=== PATIENT | male | born 2000 | race Caucasian/White ===

== ENCOUNTER 2022-08-11 22:01 | Emergency (ER) | payer MEDICAID ==
[~2022-08-11] VITALS: Ht 172.7 cm; Wt 81.6 kg
--- NOTE | 2022-08-11 23:08 | NUR ---
DAVID. R ANKLE PAIN S/P INVERTION LAST SATURDAY
--- NOTE | 2022-08-11 23:09 | NUR ---
DR. TRUJILLO AT BEDSIDE
[2022-08-11] MEDS ORDERED: ACETAMINOPHEN ES 500 MG TABLET ONE (23:15)
--- NOTE | 2022-08-11 23:18 | NUR ---
X-RAY AT BEDSIDE
[2022-08-11] MEDS ORDERED: ACETAMINOPHEN ES 500 MG TABLET PO ONE (23:30)
[2022-08-11] MEDS ORDERED: IBUPROFEN 600 MG TABLET PO ONE (23:30)
[2022-08-12 00:40] VITALS: BP 133/67; TEMP 98.2
--- NOTE | 2022-08-12 00:40 | NUR ---
Patient discharged to home in stable condition. Written and verbal after care instructions given. Patient verbalizes understanding of instruction.
== END 2022-08-12 00:40 | disposition home or self-care (01) ==
LOC: ER 22:13
DX: S93.401A Sprain of unspecified ligament of right ankle, initial encounter (principal); W18.30XA Fall on same level, unspecified, initial encounter; Y93.89 Activity, other specified; Y92.89 Other specified places as the place of occurrence of the external cause; Y99.8 Other external cause status
CPT/HCPCS: 73610-TC

== ENCOUNTER 2023-01-31 09:11 | Emergency (ER) | payer MEDICAID ==
[~2023-01-31] VITALS: Ht 172.7 cm; Wt 80.3 kg
[2023-01-31 09:21] VITALS: BP 142/65; TEMP 98; O2SAT 99
[2023-01-31] MEDS: LIDOCAINE 5% (PATCH) 1 EA PATCH TP STA (10:13)
[2023-01-31] MEDS ORDERED: ACET-2605 PO (10:20)
[2023-01-31] MEDS ORDERED: LIDO30AD10 TP (10:20)
[2023-01-31] MEDS ORDERED: PRED50TA PO (10:20)
[2023-01-31] MEDS: ACETAMINOPHEN ES 500 MG TABLET PO ONE (10:30)
[2023-01-31] MEDS: predniSONE 50 MG TABLET PO ONE (10:30)
[2023-01-31] MEDS ORDERED: predniSONE 20 MG TABLET ONE ×2 (10:37→10:38)
[2023-01-31] MEDS ORDERED: ACETAMINOPHEN ES 500 MG TABLET ONE (10:37)
[2023-01-31] MEDS ORDERED: LIDOCAINE 5% (PATCH) 1 EA PATCH TP ONE (10:37)
== END 2023-01-31 10:41 | disposition home or self-care (01) ==
LOC: ER 09:11
DX: M54.50 Low back pain, unspecified (principal); F17.200 Nicotine dependence, unspecified, uncomplicated
CPT/HCPCS: 99284; J7512 ×2

== ENCOUNTER 2023-11-10 00:53 | Emergency (ER) | payer MEDICAID ==
[~2023-11-10] VITALS: Ht 172.7 cm; Wt 83.9 kg
[~2023-11-10 00:53] MED LIST: ACET-2605 PO; LIDO30AD10 TP; PRED50TA PO
[2023-11-10 01:39] LABS: BASOPHILS % (AUTO) 0.2 % (0.0-2.0); EOSINOPHILS % (AUTO) 0.1 % (0.0-6.0); HEMATOCRIT 45 % (39-51); LYMPHOCYTES # (AUTO) 0.7 K/uL (0.8-4.8); LYMPHOCYTES % (AUTO) 5.5 % (20.0-44.0); MEAN CORPUSCULAR HEMOGLOBIN 30 PG (26.0-33.0); MEAN CORPUSCULAR HGB CONC 34 g/dl (31.0-36.0); MEAN CORPUSCULAR VOLUME 88 fL (80-96); MONOCYTES # (AUTO) 0.8 K/uL (0.1-1.30); MONOCYTES % (AUTO) 5.8 % (2.0-12.0); NEUTROPHILS # (AUTO) 11.9 K/uL (1.8-8.9); NEUTROPHILS % (AUTO) 88.4 % (43.0-81.0); PLATELET COUNT (AUTO) 223 K/uL (150-450); RED BLOOD CELL COUNT(AUTO) 5.07 MIL/uL (4.5-6.0); RED CELL DISTRIBUTION WIDTH 13.2 % (11.5-15.0); WHITE BLOOD COUNT (AUTO) 13.5 K/uL (4.3-11.0)
[2023-11-10] MEDS ORDERED: FAMOTIDINE/PF INJ 20 MG/2 ML VIAL IV ONE (01:39)
[2023-11-10] MEDS ORDERED: ONDANSETRON HCL/PF 4 MG/2 ML VIAL ONE (01:39)
[2023-11-10] MEDS: FAMOTIDINE/PF INJ 20 MG/2 ML VIAL IV ONE (01:42)
[2023-11-10] MEDS: ONDANSETRON HCL/PF 4 MG/2 ML VIAL IVP ONE (01:42)
[2023-11-10 01:47] LABS: CREATININE 1.1 mg/dL (0.6-1.3); POTASSIUM 3.8 mmol/L (3.5-5.1)
[2023-11-10] MEDS: IV NS 0.9% 1,000 ML BAG IV ONE (01:50)
[2023-11-10 01:51] LABS: INR 1.02 (0.91-1.10); PARTIAL THROMBOPLASTIN TIME 24.6 SEC (24.3-34.3); PROTHROMBIN TIME 10.8 SECS (9.2-11.1)
[2023-11-10 01:55] LABS: ALBUMIN 4.5 g/dL (3.4-5.0); BILIRUBIN,DIRECT 0.1 mg/dL (0.0-0.2); BILIRUBIN,TOTAL 0.4 mg/dL (0.2-1.0)
[2023-11-10] MEDS ORDERED: IV NS 0.9% 250 ML IV ONE (01:57)
[2023-11-10] MEDS ORDERED: IOHEXOL-350 100 ML VIAL IV ONE (01:57)
[2023-11-10] MEDS ORDERED: CT SWABBABLE VALVE TRANS SET 1 EA INFUS.SET MC ONE (01:57)
[2023-11-10 04:54] VITALS: BP 131/78; TEMP 97.9; O2SAT 99
== END 2023-11-10 04:56 | disposition home or self-care (01) ==
LOC: ER 01:04
DX: K92.0 Hematemesis (principal); R10.10 Upper abdominal pain, unspecified; F17.200 Nicotine dependence, unspecified, uncomplicated; R10.9 Unspecified abdominal pain; F12.10 Cannabis abuse, uncomplicated; Z79.52 Long term (current) use of systemic steroids
CPT/HCPCS: 99285; 96374; 96361; 96375; 71045; 74174; 85025; 80048; 83690; 80076; 36415; 85730; 80320; J3490; J2405; J7030; J7050; Q9967; G0480

== ENCOUNTER 2024-03-13 21:02 | Emergency (ER) | payer MEDICAID, OTHER ==
[~2024-03-13] VITALS: Ht 172.7 cm; Wt 81.6 kg
[2024-03-13] MEDS ORDERED: ONDANSETRON HCL/PF 4 MG/2 ML VIAL ONE (21:27)
[2024-03-13] MEDS: ONDANSETRON HCL/PF 4 MG/2 ML VIAL IVP ONE (21:30)
[2024-03-13] MEDS: IV NS 0.9% 1,000 ML BAG IV ONE (21:39)
[2024-03-13 21:52] LABS: BASOPHILS % (AUTO) 0.5 % (0.0-2.0); EOSINOPHILS # (AUTO) 0.2 K/uL (0.0-0.7); EOSINOPHILS % (AUTO) 2.2 % (0.0-6.0); HEMATOCRIT 42 % (39-51); HEMOGLOBIN 14.5 g/dL (13.5-17.5); LYMPHOCYTES # (AUTO) 1.9 K/uL (0.8-4.8); LYMPHOCYTES % (AUTO) 26.4 % (20.0-44.0); MEAN CORPUSCULAR HEMOGLOBIN 31 PG (26.0-33.0); MEAN CORPUSCULAR HGB CONC 34 g/dl (31.0-36.0); MEAN CORPUSCULAR VOLUME 91 fL (80-96); MONOCYTES # (AUTO) 0.5 K/uL (0.1-1.30); MONOCYTES % (AUTO) 6.9 % (2.0-12.0); NEUTROPHILS # (AUTO) 4.7 K/uL (1.8-8.9); PLATELET COUNT (AUTO) 231 K/uL (150-450); RED BLOOD CELL COUNT(AUTO) 4.65 MIL/uL (4.5-6.0); RED CELL DISTRIBUTION WIDTH 13.2 % (11.5-15.0); WHITE BLOOD COUNT (AUTO) 7.4 K/uL (4.3-11.0)
[2024-03-13 22:12] LABS: CALCIUM, SERUM 8.5 mg/dL (8.5-10.1); CREATININE 1.1 mg/dL (0.6-1.3); POTASSIUM 3.8 mmol/L (3.5-5.1)
[2024-03-13 22:19] LABS: ALBUMIN 4.8 g/dL (3.4-5.0); BILIRUBIN,DIRECT 0.1 mg/dL (0.0-0.2); BILIRUBIN,TOTAL 0.3 mg/dL (0.2-1.0)
[2024-03-13 23:24] VITALS: BP 116/66; TEMP 98.1; O2SAT 99
== END 2024-03-13 23:24 | disposition home or self-care (01) ==
LOC: ER 21:10
DX: R11.2 Nausea with vomiting, unspecified (principal); F17.200 Nicotine dependence, unspecified, uncomplicated; Z79.52 Long term (current) use of systemic steroids
CPT/HCPCS: 99283; 96374; 96361; 85025; 80048; 83690; 80076; 36415; J2405; J7030